=== PATIENT | male | born 2000 | race Caucasian/White ===

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

== ENCOUNTER 2024-08-06 18:57 | Observation (INO) | payer BC, SELFPAY ==
[2024-08-06 19:01] VITALS: BP 131/79; PULSE 94; RESP 16; TEMP 36.4; O2SAT 99
[2024-08-06 19:07] LABS: Glucose Point of Care > 500 mg/dl (65-105)
[2024-08-06] MEDS: SODIUM CHLORIDE 0.9% IV 700 ML 999 ML IV CONT (19:29)
[2024-08-06] MEDS: SODIUM CHLORIDE 0.9% IV 1,000 ML 999 ML IV CONT (19:29)
[2024-08-06 19:31] VITALS: BP 122/79; PULSE 100; RESP 16; TEMP 36.7; O2SAT 100
--- NOTE | 2024-08-06 19:33 | ED.RECABL ---
HPI - Recheck/Abnormal Lab/Rx General Chief Complaint: Recheck/Abnormal Lab/Rx Stated Complaint: High Blood Sugar Time Seen by Provider: 08/06/24 19:19 History of Present Illness HPI narrative: Patient is a 23-year-old male who presents to the ER with concerns of high blood sugar. He reports psychiatrist was going to change his psychiatric medication but wanted to check his blood work prior to making any changes. Patient reports his blood work was drawn yesterday and today his psychiatrist called him and told him he needed to go to the ER for evaluation. He endorses our last 3 months he has had increased urination, increased thirst, weight loss. Patient reports he has a history of depression and is on the autism spectrum. He reports he takes Strattera and Zoloft to treat his conditions. Patient and his parents also endorses patient has ?sensory issues involving food aversion. He denies any recent fevers, signs/symptoms of infection, chest pain, shortness of breath, back pain. Related Data Home Medications ?Medication ?Instructions ?Recorded ?Confirmed ?Last Taken ?Type atomoxetine 18 mg capsule 36 mg PO DAILY 12/19/22 01/05/23 Unknown History Allergies Allergy/AdvReac Type Severity Reaction Status Date / Time No Known Allergies Allergy Verified 01/05/23 09:55 Review of Systems Review of Systems: All systems reviewed & are unremarkable except as noted in HPI and below PMFSH Past Medical History Medical History (Updated 08/06/24 @ 21:56 by Ashley Archibald APRN) ADHD (attention deficit hyperactivity disorder) Depression Autism spectrum disorder Anxiety Surgical History Surgical History History of tonsillectomy and adenoidectomy 2006 Family History Family History Other Colon cancer Depression Pancreatic cancer Social History Social History Social History: Code status: Full code Surrogate decision maker: Parents Smoking status: Never smoker Second hand tobacco smoke exposure: No Alcohol intake: never Substance use: never Substance use type: does not use Lack of Transportation: No Lack of Food: Never True Current Housing: I Have Housing Concerned About Future Housing: No Difficulty Paying Gas/Electric Bills: No Difficulty Paying for Meds: No Currently Unemployed: No Education: High School Diploma/GED Difficulty w/ Childcare or Family Care: No Living arrangements: with family Occupation/Education: student Gender identity (if verbalized by the patient): Male Sexual Orientation (if Verbalized by the Patient): Straight or Heterosexual Spiritual care concerns: No Agree to blood products: Yes Exam Narrative: GENERAL: Well appearing, poorly-nourished, non-toxic, in no acute distress. HEAD: Normocephalic, atraumatic. NECK: Supple. No adenopathy, no masses. RESPIRATORY: Airway patent, respirations nonlabored. Clear to auscultation bilaterally, no rales, rhonchi, wheezing. CARDIOVASCULAR: Regular rate and rhythm without murmurs, rubs, or gallops. Peripheral pulses 2+ and equal bilaterally. ABDOMINAL: Soft, nontender, nondistended, no hepatosplenomegaly. Normoactive BS. MUSCULOSKELETAL: Moves all extremities. Strength/ROM intact without gross deformities. SKIN: Warm, dry, normal color. No rashes. NEURO: A&O X3. Speech clear. Cranial nerves II-XII grossly intact. Steady gait. No ataxic movements. PSYCHIATRIC: Appropriate mood and affect. Normal interaction. Course Vital Signs Vital signs: Vital Signs Temperature 36.4 C 08/06/24 19:01 Pulse Rate 94 08/06/24 19:01 Respiratory Rate 16 08/06/24 19:01 Blood Pressure 131/79 08/06/24 19:01 Pulse Oximetry 99 08/06/24 19:01 Temperature 36.7 C 08/06/24 19:31 Pulse Rate 100 08/06/24 19:31 Respiratory Rate 16 08/06/24 19:31 Blood Pressure 122/79 08/06/24 19:31 Pulse Oximetry 100 08/06/24 19:31 MDM - Recheck/Abnormal Lab/Rx MDM Narrative Medical decision making narrative: Patient is a 23-year-old male who presents to the ER with concerns of high blood sugar. He reports psychiatrist was going to change his psychiatric medication but wanted to check his blood work prior to making any changes. Patient reports his blood work was drawn yesterday and today his psychiatrist called him and told him he needed to go to the ER for evaluation. He endorses our last 3 months he has had increased urination, increased thirst, weight loss. Patient reports he has a history of depression and is on the autism spectrum. He reports he takes Strattera and Zoloft to treat his conditions. Patient and his parents also endorses patient has ?sensory issues involving food aversion. He denies any recent fevers, signs/symptoms of infection, chest pain, shortness of breath, back pain. Labs Ordered: CBC, CMP, VBG, phosphorus, UA, beta hydroxybutyrate, magnesium, TSH Results: Patient's CBC was unremarkable. His CMP indicates a sodium of 132, carbon dioxide 18, anion gap of 15, BUN of 8, creatinine is 0.34, glucose of 619, calcium of 7.7. His beta hydroxybutyrate was 4.40. Patient's TSH was within normal limits. His urinalysis indicated a glucose of 3+ and ketones of 3+. Imaging Ordered: None necessary Diagnosis: Hyperglycemia, new onset diabetes Patient Education/Shared MDM: Patient given a total of 3.6 L normal saline IV bolus. Repeat CMP indicates patient's glucose is decreasing slowly. Results shared with patient and family. Patient will be admitted to the hospital. He and his patient verbalized understanding and are in agreement with plan. They have many questions regarding this new diagnosis and are interested in lots of education prior to discharge. 0-Spoke with hospitalist who is in agreement to admit patient to hospital. Will give Lantus 10 units prior to admission and repeat his CMP. Differential Diagnosis Differential diagnosis: Likely other (Hyperglycemia, DKA, dehydration) Lab Data Attestation: I reviewed the patient's lab results. 08/06/24 19:23 08/06/24 19:23 Labs: Lab Results 08/06/24 08/06/24 08/06/24 Range/Units 19:02 19:21 19:23 WBC 5.0 (4.5-10.0) K/mm3 RBC 4.86 (4.6-6.20) M/mm3 Hgb 15.6 (14.0-18.0) g/dL Hct 42.3 (42.0-52.0) % MCV 87.0 (80-100) fl MCH 32.1 (26-34) pg MCHC 36.9 H (32-36) g/dl RDW 11.8 (11.5-14.5) % Plt Count 246 (150-375) k/mm3 MPV 10.6 H (7.4-10.4) fl Immature Gran % (Auto) 1.8 H (0-0.5) % Neut % (Auto) 54.9 (45.5-73.1) % Lymph % (Auto) 30.1 (18.3-44.2) % [place] % (Auto) 9.6 H (2.6-8.5) % Eos % (Auto) 2.4 (0-4.4) % Baso % (Auto) 1.2 (0.2-1.2) % Lymph # (Auto) 1.51 (0.9-3.2) K/mm3 [place] # (Auto) 0.5 (0.1-0.6) K/mm3 Eos # (Auto) 0.1 (0-0.3) K/mm3 Baso # (Auto) 0.1 (0.0-0.1) K/mm3 Abs Immat Gran (auto) 0.09 H (0.00-0.031) K/mm3 Absolute Neuts (auto) 2.8 (1.3-6.7) K/mm3 Absolute Nucleated RBC 0.000 (0.0-0.012) K/mm3 Nucleated RBC % 0.0 (0.0-0.2) % Sodium 128 L (137-145) mmol/L Potassium 3.9 (3.4-5.0) mmol/L Chloride 90 L (98-107) mmol/L Carbon Dioxide 20 L (22-30) mmol/L Anion Gap 18 H (4-12) mmol/L BUN 10 (9-20) mg/dL Creatinine 0.39 L (0.7-1.3) mg/dL Estim Creat Clear Calc 188 ml/min Estimated GFR > 60 (59 - ) Glucose 619 H* (65-110) mg/dL POC Capillary Glucose > 500 H* (65-105) mg/dl Calcium 9.2 (8.4-10.2) mg/dL Phosphorus 4.4 (2.5-4.5) mg/dL Magnesium 1.9 (1.6-2.3) mg/dL Total Bilirubin 0.9 (0.2-1.3) mg/dL AST 20 (17-59) U/L ALT 21 (6-50) U/L Alkaline Phosphatase 118 (38-126) U/L Total Protein 7.0 (6.3-8.2) g/dL Albumin 4.4 (3.5-5.1) g/dL Beta-Hydroxybutyrate/Acetoacetate 4.40 H (0.02-0.27) mmol/L TSH (Reflex) 1.280 (0.465-4.68) uIU/mL Urine Color (Yellow) Urine Appearance (Clear) Urine pH (5.0-9.0) Ur Specific [place] (1.001-1.035) Urine Protein (Negative) mg/dL Urine Glucose (UA) (Negative) mg/dL Urine Ketones (Negative) mg/dL Ur Blood (Man) (Negative) Urine Nitrate (Negative) Urine Bilirubin (Negative) Urine Urobilinogen (<2.0) mg/dL Leukocyte Esterase Rfl (Negative) AMBER/UL 08/06/24 08/06/24 08/06/24 Range/Units 20:08 20:37 21:12 WBC (4.5-10.0) K/mm3 RBC (4.6-6.20) M/mm3 Hgb (14.0-18.0) g/dL Hct (42.0-52.0) % MCV (80-100) fl MCH (26-34) pg MCHC (32-36) g/dl RDW (11.5-14.5) % Plt Count (150-375) k/mm3 MPV (7.4-10.4) fl Immature Gran % (Auto) (0-0.5) % Neut % (Auto) (45.5-73.1) % Lymph % (Auto) (18.3-44.2) % [place] % (Auto) (2.6-8.5) % Eos % (Auto) (0-4.4) % Baso % (Auto) (0.2-1.2) % Lymph # (Auto) (0.9-3.2) K/mm3 [place] # (Auto) (0.1-0.6) K/mm3 Eos # (Auto) (0-0.3) K/mm3 Baso # (Auto) (0.0-0.1) K/mm3 Abs Immat Gran (auto) (0.00-0.031) K/mm3 Absolute Neuts (auto) (1.3-6.7) K/mm3 Absolute Nucleated RBC (0.0-0.012) K/mm3 Nucleated RBC % (0.0-0.2) % Sodium Pending (137-145) mmol/L Potassium Pending (3.4-5.0) mmol/L Chloride Pending (98-107) mmol/L Carbon Dioxide Pending (22-30) mmol/L Anion Gap Pending (4-12) mmol/L BUN Pending (9-20) mg/dL Creatinine Pending (0.7-1.3) mg/dL Estim Creat Clear Calc Pending ml/min Estimated GFR Pending (59 - ) Glucose Pending (65-110) mg/dL POC Capillary Glucose 400 H (65-105) mg/dl Calcium Pending (8.4-10.2) mg/dL Phosphorus (2.5-4.5) mg/dL Magnesium (1.6-2.3) mg/dL Total Bilirubin Pending (0.2-1.3) mg/dL AST Pending (17-59) U/L ALT Pending (6-50) U/L Alkaline Phosphatase Pending (38-126) U/L Total Protein Pending (6.3-8.2) g/dL Albumin Pending (3.5-5.1) g/dL Beta-Hydroxybutyrate/Acetoacetate (0.02-0.27) mmol/L TSH (Reflex) (0.465-4.68) uIU/mL Urine Color Yellow (Yellow) Urine Appearance Clear (Clear) Urine pH 5.5 (5.0-9.0) Ur Specific [place] 1.032 (1.001-1.035) Urine Protein Negative (Negative) mg/dL Urine Glucose (UA) 3+ H (Negative) mg/dL Urine Ketones 3+ H (Negative) mg/dL Ur Blood (Man) Negative (Negative) Urine Nitrate Negative (Negative) Urine Bilirubin Negative (Negative) Urine Urobilinogen 0.2 (<2.0) mg/dL Leukocyte Esterase Rfl Negative (Negative) AMBER/UL ABG Data ABG results: 08/06/24 19:40 O2 Liters/Min Not Reportable Discharge Plan Discharge Clinical Impression: Diabetes mellitus, new onset, Dehydration Patient Disposition: Still a Patient Condition: Stable Instructions: Antibiotic Form Patient Language: Turkmen Prescriptions: No Action atomoxetine 18 mg capsule 36 mg PO DAILY sertraline 100 mg tablet 100 mg PO DAILY Qty: 30 4RF Follow-up/Referrals: Cortney Galan MD [Primary Care Provider] -
[2024-08-06 19:36] LABS: Basophils Absolute Auto 0.1 K/mm3 (0.0-0.1); Basophils Percent Auto 1.2 % (0.2-1.2); Eosinophils Absolute Auto 0.1 K/mm3 (0-0.3); Eosinophils Percent Auto 2.4 % (0-4.4); Hematocrit 42.3 % (42.0-52.0); Hemoglobin 15.6 g/dL (14.0-18.0); Immature Granulocyte Absolute 0.09 K/mm3 (0.00-0.031); Immature Granulocyte Percent A 1.8 % (0-0.5); Lymphocytes Absolute Auto 1.51 K/mm3 (0.9-3.2); Lymphocytes Percent Auto 30.1 % (18.3-44.2); Mean Corpuscular HGB Conc 36.9 g/dl (32-36); Mean Corpuscular Hemoglobin 32.1 pg (26-34); Mean Platelet Volume 10.6 fl (7.4-10.4); Monocytes Absolute Auto 0.5 K/mm3 (0.1-0.6); Monocytes Percent Auto 9.6 % (2.6-8.5); Neutrophils Absolute Auto 2.8 K/mm3 (1.3-6.7); Neutrophils Percent Auto 54.9 % (45.5-73.1); Platelet Count Result 246 k/mm3 (150-375); Red Blood Count 4.86 M/mm3 (4.6-6.20); Red Cell Distribution Width 11.8 % (11.5-14.5)
[2024-08-06 19:44] LABS: Fractional Inspired Oxygen 21 %; HCO3 VBG 17.4 mEq/l (24.0-30.0); PCO2 VBG 32.7 mmHg (42.0-48.0); pH VBG 7.345 (7.300-7.400)
[2024-08-06 19:45] LABS: Device ROOM AIR; PO2 VBG < 27.0 mmHg (35.0-45.0)
[2024-08-06 20:07] LABS: Alanine Aminotransferase 21 U/L (6-50); Albumin Level 4.4 g/dL (3.5-5.1); Alkaline Phosphatase 118 U/L (38-126); Anion Gap 18 mmol/L (4-12); Aspartate Amino Transferase 20 U/L (17-59); Bilirubin,Total 0.9 mg/dL (0.2-1.3); Blood Urea Nitrogen 10 mg/dL (9-20); Calcium 9.2 mg/dL (8.4-10.2); Carbon Dioxide 20 mmol/L (22-30); Chloride 90 mmol/L (98-107); Estimated CRCL calculation 188 ml/min; Estimated Glomerular Filt Rate > 60; Glucose 619 mg/dL (65-110); Magnesium 1.9 mg/dL (1.6-2.3); Phosphorus 4.4 mg/dL (2.5-4.5); Potassium 3.9 mmol/L (3.4-5.0); Sodium 128 mmol/L (137-145)
[2024-08-06 20:14] LABS: Add Urine Microscopic? NO; Appearance Urine Clear (Clear); Bilirubin Urine Negative (Negative); Blood Urine Negative (Negative); Color Urine Yellow (Yellow); Glucose Urine UA 3+ mg/dL (Negative); Ketones Urine 3+ mg/dL (Negative); Leukocyte Esterase Ur Negative LEU/UL (Negative); Nitrate Urine Negative (Negative); Protein Urine Negative (Negative); Specific Grav Ur 1.032 (1.001-1.035); Urobilinogen Urine 0.2 mg/dL (<2.0); pH Urine 5.5 (5.0-9.0)
[2024-08-06 20:40] LABS: Glucose Point of Care 400 mg/dl (65-105)
[2024-08-06 21:07] VITALS: BP 117/70; PULSE 77; RESP 16; TEMP 36.7; O2SAT 100
--- NOTE | 2024-08-06 21:27 | P.HP_ITS ---
H&P: HPI History of Present Illness Date/Time: 08/06/24 21:27 Chief Complaint: High blood sugar Narrative: 23-year-old male with past medical history of depression and autism spectrum disorder with sensory issues and food aversion issues presented to the ER from home after outpatient labs demonstrated high glucoses. The patient's psychiatrist at ordered lab work prior to changing the patient's psychiatric medications. Outpatient labs demonstrated glucose of 694. The patient was directed to come to the ER for evaluation. The patient and his mother reports that his weight was as high as 155 lb last year. His waist circumference used to be around 30. His waist circumference is now around 23 in. His mother reports that patient is had marked weight loss over the last 3-4 months. Patient is mother disagree with some of the timing of symptoms. But the patient confirms that he has been having polydipsia, polyphagia and polyuria at least for the last 3 months. He has been resistant on coming in for evaluation. Denies any dysuria, hematuria, nausea, vomiting, abdominal pain, fevers or chills. The patient reported that during his last evaluation is psychiatrist office his Strattera was increased from 18 mg to 25. His sertraline was increased from 100 mg up to 150 mg. His mother reports that the patient is still ?down and low? in mood. Patient denies any active suicidal or homicidal ideation. His stay electrolyte panel in the ER demonstrated pseudo hyponatremia sodium of 128 mildly low serum bicarb at 20 anion gap of 18 creatinine 0.3 and glucose of 619. The patient received a total of 3 L of IV fluids (approximately 50 mL/kilos) and repeat glucose was down to 400. On arrival to the medical floor patient's glucose was down to 332. Review of Systems 2 Review of Systems: 12 systems were reviewed with pertinent positives and negatives per HPI. Except as documented in the HPI, all other systems were reviewed and are negative. [facility] Past Medical History Medical History ADHD (attention deficit hyperactivity disorder) Depression Autism spectrum disorder Anxiety Surgical History Surgical History History of tonsillectomy and adenoidectomy 2006 Family History Family History Mother Pre-diabetes Other Colon cancer Depression Pancreatic cancer Social History Social History (Updated 08/07/24 @ 01:21 by Ayanna Serna DO) Social History: The patient lives at home with his mother father and older brother. He is currently studying psychology at [email or web address]. He is a lifelong nonsmoker does not use illicit substances. He does drink alcohol on occasion in moderation. Code status: Full code Surrogate decision maker: Parents Smoking status: Never smoker Second hand tobacco smoke exposure: No Alcohol intake: current Drinks per week: 2 Substance use: never Substance use type: does not use Do You Feel Safe in your Home?: Yes Lack of Transportation: No Lack of Food: Never True Current Housing: I Have Housing Concerned About Future Housing: No Difficulty Paying Gas/Electric Bills: No Difficulty Paying for Meds: No Currently Unemployed: No Education: Associate Degree Difficulty w/ Childcare or Family Care: No Living arrangements: with family Occupation/Education: student Gender identity (if verbalized by the patient): Male Sexual Orientation (if Verbalized by the Patient): Straight or Heterosexual Spiritual care concerns: No Agree to blood products: Yes Meds Home Medications and Allergies Home Medications ?Medication ?Instructions ?Recorded ?Confirmed ?Type atomoxetine 25 mg capsule 25 mg PO HS 08/06/24 08/06/24 History sertraline 100 mg tablet 150 mg PO HS 08/06/24 08/06/24 History Allergies Allergy/AdvReac Type Severity Reaction Status Date / Time No Known Allergies Allergy Verified 01/05/23 09:55 Vital Signs Vital Signs - 24 hr 08/06/24 19:01 08/06/24 19:31 Temperature 97.6 F 98.1 F Pulse Rate 94 100 Respiratory Rate 16 16 Blood Pressure 131/79 122/79 Pulse Oximetry 99 100 Exam 2 Narrative: Weight 55 kg BMI 17.9 Const: Other: Thin body habitus, no acute distress, appears stated age HENMT: Other: Head is normocephalic atraumatic, mucous membranes are tacky, no oral pharyngeal erythema Eyes: Other: Pupils are equal and reactive, no scleral icterus, no conjunctival pallor Neck: Other: No JVD, no lymphadenopathy, trachea midline Resp: Other: Clear to auscultation bilaterally, no increased work of breathing Cardio: Other: Regular rate, regular rhythm, 2+ bilateral radial pedal pulses GI: Other: Concave, soft, no organomegaly, normoactive bowel sounds Skin: Other: Generalized pallor, non jaundice Neuro: Other: Alert oriented, speech is clear, no facial asymmetry, no localizing neurologic deficits noted during the course of conversation Extrem: Other: No clubbing, cyanosis or edema Psych: Other: Flat affect, pleasant, cooperative, appropriate judgment and insight H&P: Results Labs Labs: Laboratory Tests 08/06/24 19:23 CMP: Sodium 128 potassium 3.9 chloride 90 CO2 20 anion gap 18 BUN 10 creatinine 0.39 glucose 619 calcium 9.2 magnesium 1.9 AST ALT and alk phos within normal limits albumin 4.4 total protein of 7 08/06/24 08/06/24 08/06/24 19:02 19:20 19:21 WBC RBC Hgb Hct MCV MCH MCHC RDW Plt Count MPV Immature Gran % (Auto) Neut % (Auto) Lymph % (Auto) [place] % (Auto) Eos % (Auto) Baso % (Auto) Lymph # (Auto) [place] # (Auto) Eos # (Auto) Baso # (Auto) Abs Immat Gran (auto) Absolute Neuts (auto) Absolute Nucleated RBC Nucleated RBC % VBG pH VBG pCO2 VBG pO2 VBG HCO3 O2 Delivery Device O2 Liters/Min Sodium Potassium Chloride Carbon Dioxide Anion Gap BUN Creatinine Estim Creat Clear Calc Estimated GFR Glucose POC Capillary Glucose > 500 H* Hemoglobin A1c Pending Calcium Phosphorus Magnesium Total Bilirubin AST ALT Alkaline Phosphatase Total Protein Albumin Beta-Hydroxybutyrate/Acetoacetate TSH (Reflex) 1.280 Urine Color Urine Appearance Urine pH Ur Specific [place] Urine Protein Urine Glucose (UA) Urine Ketones Ur Blood (Man) Urine Nitrate Urine Bilirubin Urine Urobilinogen Leukocyte Esterase Rfl 08/06/24 08/06/24 08/06/24 19:23 19:40 20:08 WBC 5.0 RBC 4.86 Hgb 15.6 Hct 42.3 MCV 87.0 MCH 32.1 MCHC 36.9 H RDW 11.8 Plt Count 246 MPV 10.6 H Immature Gran % (Auto) 1.8 H Neut % (Auto) 54.9 Lymph % (Auto) 30.1 [place] % (Auto) 9.6 H Eos % (Auto) 2.4 Baso % (Auto) 1.2 Lymph # (Auto) 1.51 [place] # (Auto) 0.5 Eos # (Auto) 0.1 Baso # (Auto) 0.1 Abs Immat Gran (auto) 0.09 H Absolute Neuts (auto) 2.8 Absolute Nucleated RBC 0.000 Nucleated RBC % 0.0 VBG pH Pending VBG pCO2 Pending VBG pO2 Pending VBG HCO3 Pending O2 Delivery Device Pending O2 Liters/Min Not Reportable Sodium 128 L Potassium 3.9 Chloride 90 L Carbon Dioxide 20 L Anion Gap 18 H BUN 10 Creatinine 0.39 L Estim Creat Clear Calc 188 Estimated GFR > 60 Glucose 619 H* POC Capillary Glucose Hemoglobin A1c Calcium 9.2 Phosphorus 4.4 Magnesium 1.9 Total Bilirubin 0.9 AST 20 ALT 21 Alkaline Phosphatase 118 Total Protein 7.0 Albumin 4.4 Beta-Hydroxybutyrate/Acetoacetate 4.40 H TSH (Reflex) Urine Color Yellow Urine Appearance Clear Urine pH 5.5 Ur Specific [place] 1.032 Urine Protein Negative Urine Glucose (UA) 3+ H Urine Ketones 3+ H Ur Blood (Man) Negative Urine Nitrate Negative Urine Bilirubin Negative Urine Urobilinogen 0.2 Leukocyte Esterase Rfl Negative 08/06/24 08/06/24 20:37 21:12 WBC RBC Hgb Hct MCV MCH MCHC RDW Plt Count MPV Immature Gran % (Auto) Neut % (Auto) Lymph % (Auto) [place] % (Auto) Eos % (Auto) Baso % (Auto) Lymph # (Auto) [place] # (Auto) Eos # (Auto) Baso # (Auto) Abs Immat Gran (auto) Absolute Neuts (auto) Absolute Nucleated RBC Nucleated RBC % VBG pH VBG pCO2 VBG pO2 VBG HCO3 O2 Delivery Device O2 Liters/Min Sodium Pending Potassium Pending Chloride Pending Carbon Dioxide Pending Anion Gap Pending BUN Pending Creatinine Pending Estim Creat Clear Calc Pending Estimated GFR Pending Glucose Pending POC Capillary Glucose 400 H Hemoglobin A1c Calcium Pending Phosphorus Magnesium Total Bilirubin Pending AST Pending ALT Pending Alkaline Phosphatase Pending Total Protein Pending Albumin Pending Beta-Hydroxybutyrate/Acetoacetate TSH (Reflex) Urine Color Urine Appearance Urine pH Ur Specific [place] Urine Protein Urine Glucose (UA) Urine Ketones Ur Blood (Man) Urine Nitrate Urine Bilirubin Urine Urobilinogen Leukocyte Esterase Rfl VBG is not resulted within the computer system but VBG was obtained and resulted. PH of 7.345 in pCO2 is mildly low at 32.7 Assessment and Plan Assessment and plan (1) New onset type 1 diabetes mellitus, uncontrolled: Status: Acute (2) Protein-calorie malnutrition, moderate: Code(s): E44.0 - Moderate protein-calorie malnutrition Status: Acute (3) Dehydration: Code(s): E86.0 - Dehydration Status: Acute (4) Pseudohyponatremia: Code(s): R79.89 - Other specified abnormal findings of blood chemistry Status: Acute Plan Patient has new onset type 1 diabetes mellitus with borderline DKA versus combination of DKA and or starvation ketosis. Patient has already had significant improvement in glucoses with isotonic fluid resuscitation approximately 50 mL/kilos. Repeat electrolyte panel did demonstrate significant improvement in anion gap with slightly lower serum bicarb. But patient had significant improvement in pseudo hyponatremia with improvement in glucose is down to 385. VBG results are still pending but patient clinically appears stable and improved with fluids. Will admit patient to medical floor. I requested the patient receive dose of Lantus 10 units subQ x1 this would be 0.2 units per kg dose given the patient is insulin naive state. Will also place patient on low-dose sliding scale insulin and mealtime bolus insulin as well as Accu-Cheks a.c. HS and hypoglycemia protocol. Will consult nurse educator is the patient family will need significant Education given this new diagnosis. Patient has pseudo hyponatremia due to degree of hyperglycemia with sodium has improved proportionately with correction of glucose. Will repeat electrolyte panel in a.m.. The patient is adamant that he only wants to use glucometer with intermittent Accu-Cheks and basal bolus insulin with long-acting insulin and short-acting insulin as needed with meals. His mother is adamant that he received an insulin pump. I did discuss in great detail with both patient and his mother at bedside that the decision on insulin pump would not be made during an inpatient hospital stay. That he would need to follow-up with Endocrinology as outpatient to have further discussion of this. The patient has had at least and 18 kg weight loss since last year. It sounds as if he has had more acute weight loss recently but the exact amount is unknown. Patient does have extremely thin body habitus with BMI of 17 with evidence of muscle wasting. He at least has moderate if not severe protein calorie malnutrition. This is at least in part due to untreated/previously unknown diagnosis of diabetes causing some muscle wasting and subcutaneous fat loss. Patient would benefit from outpatient dietitian consultation Education regarding appropriate nutrition/dietary choices. The patient does report persistent depressive symptoms but denies any acute worsening of depression symptoms. He already has close follow-up with his psychiatrist as outpatient and recently had medication changes. Will continue home sertraline. Will hold the patient's Strattera while acutely hospitalized. Patient's mother request psychiatric consultation while inpatient. I explained to her that that was not a feasible option as our facility does not have a inpatient psychiatric service. In his patient is not actively acutely decompensated from his depression he can follow-up with his outpatient provider. The patient's case/plan of care was discussed with the patient his mother at bedside with the patient's permission. All questions were answered and concerns addressed. Patient has been admitted as observation status. Quality If No VTE Prophylaxis Answer both mechanical and pharmacologic: Reason no mechanical VTE proph: low risk/not indicated Reason no pharmacologic proph: low risk/not indicated Hospitalist MIPS Advance Care Plan I have confirmed that the patient's Advanced Care Plan is present, code status is documented, or surrogate decision maker is listed in patient medical record.: Yes Medication Reconciliation I have utilized all available resources to obtain, update and review the patients current medications (includes all prescriptions, OTC, herbals, cannabis, and nutritional supplements).: Yes
[2024-08-06 21:40] LABS: Alanine Aminotransferase 21 U/L (6-50); Albumin Level 3.8 g/dL (3.5-5.1); Alkaline Phosphatase 83 U/L (38-126); Anion Gap 15 mmol/L (4-12); Aspartate Amino Transferase 26 U/L (17-59); Bilirubin,Total 0.8 mg/dL (0.2-1.3); Blood Urea Nitrogen 8 mg/dL (9-20); Calcium 7.7 mg/dL (8.4-10.2); Carbon Dioxide 18 mmol/L (22-30); Chloride 99 mmol/L (98-107); Estimated CRCL calculation 212 ml/min; Estimated Glomerular Filt Rate > 60; Glucose 385 mg/dL (65-110); Potassium 3.6 mmol/L (3.4-5.0); Sodium 132 mmol/L (137-145)
[2024-08-06] MEDS: INSULIN GLARGINE (*BKC) 100 UNITS/ML 10 UNITS SUB-Q (21:46)
[2024-08-06 21:48] LABS: Hemoglobin A1C > 14.0 % (<5.7)
[2024-08-06] MEDS: SODIUM CHLORIDE 0.9% IV 1,000 ML 125 ML IV CONT (22:16)
[2024-08-06 22:53] LABS: Glucose Point of Care 332 mg/dl (65-105)
[2024-08-06 23:00] VITALS: BP 106/73; PULSE 95; RESP 16; TEMP 36.6; O2SAT 100
[2024-08-06 23:48] VITALS: BMI 17.1
[2024-08-07] MEDS: INSULIN ASPART (*BKC) 100 UNITS/ML SUB-Q ×6 (00:21→20:36)
[2024-08-07 03:30] VITALS: BP 101/64; PULSE 99; RESP 14; TEMP 36.5; O2SAT 97
[2024-08-07 03:41] LABS: Glucose Point of Care 117 mg/dl (65-105)
[2024-08-07 05:24] LABS: Anion Gap 9 mmol/L (4-12); Blood Urea Nitrogen 5 mg/dL (9-20); Calcium 8.2 mg/dL (8.4-10.2); Carbon Dioxide 25 mmol/L (22-30); Chloride 103 mmol/L (98-107); Estimated CRCL calculation 184 ml/min; Estimated Glomerular Filt Rate > 60; Glucose 106 mg/dL (65-110); Potassium 2.9 mmol/L (3.4-5.0); Sodium 137 mmol/L (137-145)
[2024-08-07] MEDS: SODIUM CHLORIDE 0.9% IV 1,000 ML 125 ML IV CONT ×3 (06:09→20:34)
[2024-08-07 08:00] VITALS: PULSE 99; RESP 14; O2SAT 97
[2024-08-07 08:23] LABS: Glucose Point of Care 113 mg/dl (65-105)
[2024-08-07 12:21] LABS: Glucose Point of Care 207 mg/dl (65-105)
[2024-08-07] MEDS: ACETAMINOPHEN 325 MG TABLET 650 MG PO (12:31)
[2024-08-07 14:00] VITALS: BP 113/71; PULSE 93; RESP 20; O2SAT 98
--- NOTE | 2024-08-07 15:02 | PM.IMPN ---
Progress Note: A&P Assessment and Plan (1) New onset type 1 diabetes mellitus, uncontrolled: Status: Acute (2) Protein-calorie malnutrition, moderate: Code(s): E44.0 - Moderate protein-calorie malnutrition Status: Acute (3) Dehydration: Code(s): E86.0 - Dehydration Status: Acute (4) Pseudohyponatremia: Code(s): R79.89 - Other specified abnormal findings of blood chemistry Status: Acute Plan Patient has new onset type 1 diabetes mellitus with borderline DKA versus combination of DKA and or starvation ketosis. Patient has already had significant improvement in glucoses with isotonic fluid resuscitation approximately 50 mL/kilos. Repeat electrolyte panel did demonstrate significant improvement in anion gap with slightly lower serum bicarb. But patient had significant improvement in pseudo hyponatremia with improvement in glucose is down to 385. VBG results are still pending but patient clinically appears stable and improved with fluids. Will admit patient to medical floor. I requested the patient receive dose of Lantus 10 units subQ x1 this would be 0.2 units per kg dose given the patient is insulin naive state. Will also place patient on low-dose sliding scale insulin and mealtime bolus insulin as well as Accu-Cheks a.c. HS and hypoglycemia protocol. Will consult pet training instructor is the patient family will need significant Education given this new diagnosis. Patient has pseudo hyponatremia due to degree of hyperglycemia with sodium has improved proportionately with correction of glucose. Will repeat electrolyte panel in a.m.. The patient is adamant that he only wants to use glucometer with intermittent Accu-Cheks and basal bolus insulin with long-acting insulin and short-acting insulin as needed with meals. His mother is adamant that he received an insulin pump. I did discuss in great detail with both patient and his mother at bedside that the decision on insulin pump would not be made during an inpatient hospital stay. That he would need to follow-up with Endocrinology as outpatient to have further discussion of this. The patient has had at least and 18 kg weight loss since last year. It sounds as if he has had more acute weight loss recently but the exact amount is unknown. Patient does have extremely thin body habitus with BMI of 17 with evidence of muscle wasting. He at least has moderate if not severe protein calorie malnutrition. This is at least in part due to untreated/previously unknown diagnosis of diabetes causing some muscle wasting and subcutaneous fat loss. Patient would benefit from outpatient dietitian consultation Education regarding appropriate nutrition/dietary choices. The patient does report persistent depressive symptoms but denies any acute worsening of depression symptoms. He already has close follow-up with his psychiatrist as outpatient and recently had medication changes. Will continue home sertraline. Will hold the patient's Strattera while acutely hospitalized. Patient's mother request psychiatric consultation while inpatient. I explained to her that that was not a feasible option as our facility does not have a inpatient psychiatric service. In his patient is not actively acutely decompensated from his depression he can follow-up with his outpatient provider. The patient's case/plan of care was discussed with the patient his mother at bedside with the patient's permission. All questions were answered and concerns addressed. Patient has been admitted as observation status. Patient with new onset diabetes etiology uncertain type 1 or type 2, suspect most likely type 1 and early stage to further evaluate C-peptide is ordered, patient started on insulin regimen and we will consult fruit or nut farm worker for further recommendation, patient's family is quite interested in starting the patient on insulin pump discussed with patient and his family, patient will follow-up with his dry wall plasterer and further recommendation to follow, patient was found to have hyponatremia most likely secondary to hyperglycemia which is now trending up his as blood sugars are improving. Patient is clinically stable will continue to monitor and further recommendation to follow. Subjective Date/time seen: 08/07/24 15:02 Interval history: High blood sugar H&P-Narrative: 23-year-old male with past medical history of depression and autism spectrum disorder with sensory issues and food aversion issues presented to the ER from home after outpatient labs demonstrated high glucoses. The patient's psychiatrist at ordered lab work prior to changing the patient's psychiatric medications. Outpatient labs demonstrated glucose of 694. The patient was directed to come to the ER for evaluation. The patient and his mother reports that his weight was as high as 155 lb last year. His waist circumference used to be around 30. His waist circumference is now around 23 in. His mother reports that patient is had marked weight loss over the last 3-4 months. Patient is mother disagree with some of the timing of symptoms. But the patient confirms that he has been having polydipsia, polyphagia and polyuria at least for the last 3 months. He has been resistant on coming in for evaluation. Denies any dysuria, hematuria, nausea, vomiting, abdominal pain, fevers or chills. The patient reported that during his last evaluation is psychiatrist office his Strattera was increased from 18 mg to 25. His sertraline was increased from 100 mg up to 150 mg. His mother reports that the patient is still ?down and low? in mood. Patient denies any active suicidal or homicidal ideation. His stay electrolyte panel in the ER demonstrated pseudo hyponatremia sodium of 128 mildly low serum bicarb at 20 anion gap of 18 creatinine 0.3 and glucose of 619. The patient received a total of 3 L of IV fluids (approximately 50 mL/kilos) and repeat glucose was down to 400. On arrival to the medical floor patient's glucose was down to 332. Patient with new onset diabetes etiology uncertain type 1 or type 2, suspect most likely type 1 and early stage to further evaluate C-peptide is ordered, patient started on insulin regimen and we will consult fruit or nut farm worker for further recommendation, patient's family is quite interested in starting the patient on insulin pump discussed with patient and his family, patient will follow-up with his dry wall plasterer and further recommendation to follow, patient was found to have hyponatremia most likely secondary to hyperglycemia which is now trending up his as blood sugars are improving. Patient is clinically stable will continue to monitor and further recommendation to follow. Review of Systems Review of Systems: 12 systems were reviewed with pertinent positives and negatives per HPI. Except as documented in the HPI, all other systems were reviewed and are negative. Exam Narrative: Patient is comfortable, NAD appears malnourished HEENT: eyes are clear and none icteric LUNGS:CTA HEART: RR S1S2 ABD: BS+, Soft and nontender Lower extremities: no edema SKIN: nonjaundiced Neuro: grossly intact. Objective Data Vital Signs Vital Signs: Vital Signs - 24 hr 08/06/24 19:01 08/06/24 19:31 08/06/24 21:07 Temperature 36.4 C 36.7 C 36.7 C Pulse Rate 94 100 77 Respiratory Rate 16 16 16 Blood Pressure 131/79 122/79 117/70 Pulse Oximetry 99 100 100 Oxygen Delivery 08/06/24 23:00 08/07/24 01:34 08/07/24 03:30 Temperature 36.6 C 36.5 C Pulse Rate 95 99 Respiratory Rate 16 14 Blood Pressure 106/73 101/64 Pulse Oximetry 100 97 Oxygen Delivery Room Air 08/07/24 08:00 Temperature Pulse Rate 99 Respiratory Rate 14 Blood Pressure Pulse Oximetry 97 Oxygen Delivery Room Air Intake/Output Intake/Output: Intake & Output 08/04/24 08/05/24 08/06/24 08/07/24 23:59 23:59 23:59 23:59 Intake Total 1700 2577.9 Balance 1700 2577.9 Meds/Results Medications: Active Medications Generic Name Dose Route Start Last Admin Trade Name Freq PRN Reason Stop Dose Admin Acetaminophen 650 mg 08/07/24 11:50 08/07/24 12:31 Acetaminophen 325 Mg Tablet PO 650 mg Q6H PRN Administration Mild Pain (1-3) or Fever Dextrose 12.5 gm 08/06/24 21:47 Dextrose 50% 25 Gm/50 Ml Syringe IV PUSH PRN PRN Hypoglycemia Protocol Glucagon 1 mg 08/06/24 21:47 Glucagon For Inj 1 Mg Vial IM PRN PRN Hypoglycemia Protocol Glucose 15 gm 08/06/24 21:47 Glucose Oral Gel 15 Gm Of Glucse In 37.5 Gm Tube PO PRN PRN Hypoglycemia Protocol Dextrose 1,000 mls @ 100 mls/hr 08/06/24 21:47 Dextrose 5% 1,000 Ml IVPB PRN PRN Hypoglycemia Protocol Sodium Chloride 1,000 mls @ 125 mls/hr 08/06/24 22:00 08/07/24 12:39 Normal Saline Iv IV CONT 125 mls/hr .Q8H GABRIELLE Administration Insulin Aspart 2 units 08/07/24 08:00 08/07/24 12:32 Insulin Aspart (*Bkc) 100 Units/Ml SUB-Q 2 units TIDWM GABRIELLE Administration Insulin Aspart 2 - 5 units 08/07/24 08:00 08/07/24 12:32 Insulin Aspart (*Bkc) 100 Units/Ml SUB-Q 2 units TIDWM GABRIELLE Administration Protocol Insulin Aspart 1 - 2 units 08/07/24 21:00 Insulin Aspart (*Bkc) 100 Units/Ml SUB-Q HS [facility] Protocol Insulin Glargine 8 units 08/07/24 21:00 Insulin Glargine (*Bkc) 100 Units/Ml 0.15 units/kg (8 units) SUB-Q HS [facility] Sertraline HCl 150 mg 08/07/24 21:00 Sertraline Hcl 50 Mg Tablet PO HS [facility] Labs Labs: Laboratory Results - last 24 hr 08/06/24 08/06/24 08/06/24 19:02 19:20 19:21 WBC RBC Hgb Hct MCV MCH MCHC RDW Plt Count MPV Immature Gran % (Auto) Neut % (Auto) Lymph % (Auto) [place] % (Auto) Eos % (Auto) Baso % (Auto) Lymph # (Auto) [place] # (Auto) Eos # (Auto) Baso # (Auto) Abs Immat Gran (auto) Absolute Neuts (auto) Absolute Nucleated RBC Nucleated RBC % O2 Liters/Min Sodium Potassium Chloride Carbon Dioxide Anion Gap BUN Creatinine Estim Creat Clear Calc Estimated GFR Glucose POC Capillary Glucose > 500 H* Hemoglobin A1c > 14.0 H Calcium Phosphorus Magnesium Total Bilirubin AST ALT Alkaline Phosphatase Total Protein Albumin Beta-Hydroxybutyrate/Acetoacetate TSH (Reflex) 1.280 Urine Color Urine Appearance Urine pH Ur Specific [place] Urine Protein Urine Glucose (UA) Urine Ketones Ur Blood (Man) Urine Nitrate Urine Bilirubin Urine Urobilinogen Leukocyte Esterase Rfl 08/06/24 08/06/24 08/06/24 19:23 19:40 20:08 WBC 5.0 RBC 4.86 Hgb 15.6 Hct 42.3 MCV 87.0 MCH 32.1 MCHC 36.9 H RDW 11.8 Plt Count 246 MPV 10.6 H Immature Gran % (Auto) 1.8 H Neut % (Auto) 54.9 Lymph % (Auto) 30.1 [place] % (Auto) 9.6 H Eos % (Auto) 2.4 Baso % (Auto) 1.2 Lymph # (Auto) 1.51 [place] # (Auto) 0.5 Eos # (Auto) 0.1 Baso # (Auto) 0.1 Abs Immat Gran (auto) 0.09 H Absolute Neuts (auto) 2.8 Absolute Nucleated RBC 0.000 Nucleated RBC % 0.0 O2 Liters/Min Not Reportable Sodium 128 L Potassium 3.9 Chloride 90 L Carbon Dioxide 20 L Anion Gap 18 H BUN 10 Creatinine 0.39 L Estim Creat Clear Calc 188 Estimated GFR > 60 Glucose 619 H* POC Capillary Glucose Hemoglobin A1c Calcium 9.2 Phosphorus 4.4 Magnesium 1.9 Total Bilirubin 0.9 AST 20 ALT 21 Alkaline Phosphatase 118 Total Protein 7.0 Albumin 4.4 Beta-Hydroxybutyrate/Acetoacetate 4.40 H TSH (Reflex) Urine Color Yellow Urine Appearance Clear Urine pH 5.5 Ur Specific [place] 1.032 Urine Protein Negative Urine Glucose (UA) 3+ H Urine Ketones 3+ H Ur Blood (Man) Negative Urine Nitrate Negative Urine Bilirubin Negative Urine Urobilinogen 0.2 Leukocyte Esterase Rfl Negative 08/06/24 08/06/24 08/06/24 20:37 21:12 22:48 WBC RBC Hgb Hct MCV MCH MCHC RDW Plt Count MPV Immature Gran % (Auto) Neut % (Auto) Lymph % (Auto) [place] % (Auto) Eos % (Auto) Baso % (Auto) Lymph # (Auto) [place] # (Auto) Eos # (Auto) Baso # (Auto) Abs Immat Gran (auto) Absolute Neuts (auto) Absolute Nucleated RBC Nucleated RBC % O2 Liters/Min Sodium 132 L Potassium 3.6 Chloride 99 Carbon Dioxide 18 L Anion Gap 15 H BUN 8 L Creatinine 0.34 L Estim Creat Clear Calc 212 Estimated GFR > 60 Glucose 385 H POC Capillary Glucose 400 H 332 H Hemoglobin A1c Calcium 7.7 L Phosphorus Magnesium Total Bilirubin 0.8 AST 26 ALT 21 Alkaline Phosphatase 83 Total Protein 6.0 L Albumin 3.8 Beta-Hydroxybutyrate/Acetoacetate TSH (Reflex) Urine Color Urine Appearance Urine pH Ur Specific [place] Urine Protein Urine Glucose (UA) Urine Ketones Ur Blood (Man) Urine Nitrate Urine Bilirubin Urine Urobilinogen Leukocyte Esterase Rfl 08/07/24 08/07/24 08/07/24 03:19 04:47 08:09 WBC RBC Hgb Hct MCV MCH MCHC RDW Plt Count MPV Immature Gran % (Auto) Neut % (Auto) Lymph % (Auto) [place] % (Auto) Eos % (Auto) Baso % (Auto) Lymph # (Auto) [place] # (Auto) Eos # (Auto) Baso # (Auto) Abs Immat Gran (auto) Absolute Neuts (auto) Absolute Nucleated RBC Nucleated RBC % O2 Liters/Min Sodium 137 Potassium 2.9 L Chloride 103 Carbon Dioxide 25 Anion Gap 9 BUN 5 L Creatinine 0.38 L Estim Creat Clear Calc 184 Estimated GFR > 60 Glucose 106 POC Capillary Glucose 117 H 113 H Hemoglobin A1c Calcium 8.2 L Phosphorus Magnesium Total Bilirubin AST ALT Alkaline Phosphatase Total Protein Albumin Beta-Hydroxybutyrate/Acetoacetate TSH (Reflex) Urine Color Urine Appearance Urine pH Ur Specific [place] Urine Protein Urine Glucose (UA) Urine Ketones Ur Blood (Man) Urine Nitrate Urine Bilirubin Urine Urobilinogen Leukocyte Esterase Rfl 08/07/24 12:04 WBC RBC Hgb Hct MCV MCH MCHC RDW Plt Count MPV Immature Gran % (Auto) Neut % (Auto) Lymph % (Auto) [place] % (Auto) Eos % (Auto) Baso % (Auto) Lymph # (Auto) [place] # (Auto) Eos # (Auto) Baso # (Auto) Abs Immat Gran (auto) Absolute Neuts (auto) Absolute Nucleated RBC Nucleated RBC % O2 Liters/Min Sodium Potassium Chloride Carbon Dioxide Anion Gap BUN Creatinine Estim Creat Clear Calc Estimated GFR Glucose POC Capillary Glucose 207 H Hemoglobin A1c Calcium Phosphorus Magnesium Total Bilirubin AST ALT Alkaline Phosphatase Total Protein Albumin Beta-Hydroxybutyrate/Acetoacetate TSH (Reflex) Urine Color Urine Appearance Urine pH Ur Specific [place] Urine Protein Urine Glucose (UA) Urine Ketones Ur Blood (Man) Urine Nitrate Urine Bilirubin Urine Urobilinogen Leukocyte Esterase Rfl
[2024-08-07 17:25] LABS: Glucose Point of Care 181 mg/dl (65-105)
--- NOTE | 2024-08-07 18:49 | PC.NURSE ---
Extensive education provided regarding diabetes. Patient and family was given a diabetes booklet, an assortment of print outs that detailed meal management, checking blood sugars, hypo and hyperglycemia, etc. Educational materials were discussed and all questions answered to the best of this nurses ability. marine plumber has been notified and will continue education this week. Patient was able to return demonstration checking blood sugar with the accu check machine and one touch glucose monitor. Pt was also able to successfully give insulin injection at dinner time on his first try. Pt and family educated on potential use of a continuous glucose monitor in the future. Pt states he is not wanting a pump at this time. Lots of reiteration on the fact that the patient can still eat, but will just need to dose for his meals. Patient and family all are aware of when to check blood sugars as well as dosing for meals. Pt was very nervous at the beginning of this nurses shift and seems more comfortable at the end of the day.
[2024-08-07 20:33] VITALS: BP 101/68; PULSE 90; RESP 18; TEMP 36.7; O2SAT 100
[2024-08-07 20:33] LABS: Glucose Point of Care 296 mg/dl (65-105)
[2024-08-07] MEDS: SERTRALINE HCL 50 MG TABLET 150 MG PO (20:34)
[2024-08-07] MEDS: INSULIN GLARGINE (*BKC) 100 UNITS/ML 8 UNITS SUB-Q (20:38)
[2024-08-08 02:26] LABS: Glucose Point of Care 191 mg/dl (65-105)
[2024-08-08] MEDS: SODIUM CHLORIDE 0.9% IV 1,000 ML 125 ML IV CONT (04:34)
[2024-08-08 05:09] VITALS: BP 104/59; PULSE 86; RESP 16; TEMP 36.4; O2SAT 100
[2024-08-08 06:38] LABS: Hematocrit 34.8 % (42.0-52.0); Hemoglobin 12.7 g/dL (14.0-18.0); Mean Corpuscular HGB Conc 36.5 g/dl (32-36); Mean Corpuscular Hemoglobin 32.4 pg (26-34); Mean Corpuscular Volume 88.8 fl (80-100); Mean Platelet Volume 10.4 fl (7.4-10.4); Platelet Count Result 178 k/mm3 (150-375); Red Blood Count 3.92 M/mm3 (4.6-6.20); Red Cell Distribution Width 11.9 % (11.5-14.5); White Blood Count 4.8 K/mm3 (4.5-10.0)
[2024-08-08 06:51] LABS: Magnesium 1.9 mg/dL (1.6-2.3)
[2024-08-08 08:23] LABS: Glucose Point of Care 219 mg/dl (65-105)
[2024-08-08] MEDS: INSULIN ASPART (*BKC) 100 UNITS/ML SUB-Q ×7 (08:37→20:59)
[2024-08-08 10:10] LABS: Anion Gap 11 mmol/L (4-12); Blood Urea Nitrogen 4 mg/dL (9-20); Carbon Dioxide 21 mmol/L (22-30); Chloride 104 mmol/L (98-107); Estimated CRCL calculation 184 ml/min; Estimated Glomerular Filt Rate > 60; Glucose 204 mg/dL (65-110); Sodium 136 mmol/L (137-145)
[2024-08-08 12:15] LABS: Glucose Point of Care 261 mg/dl (65-105)
[2024-08-08] MEDS: POTASSIUM CHLORIDE 20 MEQ ER TABLET 40 MEQ PO (12:32)
[2024-08-08 13:10] VITALS: BMI 17.1
--- NOTE | 2024-08-08 13:24 | PM.IMPN ---
Progress Note: A&P Assessment and Plan (1) New onset type 1 diabetes mellitus, uncontrolled: Status: Acute (2) Protein-calorie malnutrition, moderate: Code(s): E44.0 - Moderate protein-calorie malnutrition Status: Acute (3) Dehydration: Code(s): E86.0 - Dehydration Status: Acute (4) Pseudohyponatremia: Code(s): R79.89 - Other specified abnormal findings of blood chemistry Status: Acute Plan Patient has new onset type 1 diabetes mellitus with borderline DKA versus combination of DKA and or starvation ketosis. Patient has already had significant improvement in glucoses with isotonic fluid resuscitation approximately 50 mL/kilos. Repeat electrolyte panel did demonstrate significant improvement in anion gap with slightly lower serum bicarb. But patient had significant improvement in pseudo hyponatremia with improvement in glucose is down to 385. VBG results are still pending but patient clinically appears stable and improved with fluids. Will admit patient to medical floor. I requested the patient receive dose of Lantus 10 units subQ x1 this would be 0.2 units per kg dose given the patient is insulin naive state. Will also place patient on low-dose sliding scale insulin and mealtime bolus insulin as well as Accu-Cheks a.c. HS and hypoglycemia protocol. Will consult early childhood special educator is the patient family will need significant Education given this new diagnosis. Patient has pseudo hyponatremia due to degree of hyperglycemia with sodium has improved proportionately with correction of glucose. Will repeat electrolyte panel in a.m.. The patient is adamant that he only wants to use glucometer with intermittent Accu-Cheks and basal bolus insulin with long-acting insulin and short-acting insulin as needed with meals. His mother is adamant that he received an insulin pump. I did discuss in great detail with both patient and his mother at bedside that the decision on insulin pump would not be made during an inpatient hospital stay. That he would need to follow-up with Endocrinology as outpatient to have further discussion of this. The patient has had at least and 18 kg weight loss since last year. It sounds as if he has had more acute weight loss recently but the exact amount is unknown. Patient does have extremely thin body habitus with BMI of 17 with evidence of muscle wasting. He at least has moderate if not severe protein calorie malnutrition. This is at least in part due to untreated/previously unknown diagnosis of diabetes causing some muscle wasting and subcutaneous fat loss. Patient would benefit from outpatient dietitian consultation Education regarding appropriate nutrition/dietary choices. The patient does report persistent depressive symptoms but denies any acute worsening of depression symptoms. He already has close follow-up with his psychiatrist as outpatient and recently had medication changes. Will continue home sertraline. Will hold the patient's Strattera while acutely hospitalized. Patient's mother request psychiatric consultation while inpatient. I explained to her that that was not a feasible option as our facility does not have a inpatient psychiatric service. In his patient is not actively acutely decompensated from his depression he can follow-up with his outpatient provider. The patient's case/plan of care was discussed with the patient his mother at bedside with the patient's permission. All questions were answered and concerns addressed. Patient has been admitted as observation status. Patient with new onset diabetes etiology uncertain type 1 or type 2, suspect most likely type 1 and early stage to further evaluate C-peptide is ordered, patient started on insulin regimen and we will consult school vocational educator for further recommendation, patient's family is quite interested in starting the patient on insulin pump discussed with patient and his family, patient will follow-up with his women's lacrosse coach and further recommendation to follow, patient was found to have hyponatremia most likely secondary to hyperglycemia which is now trending up his as blood sugars are improving. Patient is clinically stable will continue to monitor and further recommendation to follow. today patient stats feels better his blood sugars are improving and he has no complains to polyuria, polydipsia, patient stats he feels comfortable giving himself insulin injection, C-peptide levels are pending and family is working getting consultation with an women's lacrosse coach and patient will be seen by a early childhood special educator and further recommendation to follow. Subjective Date/time seen: 08/08/24 13:24 Interval history: High blood sugar H&P-Narrative: 23-year-old male with past medical history of depression and autism spectrum disorder with sensory issues and food aversion issues presented to the ER from home after outpatient labs demonstrated high glucoses. The patient's psychiatrist at ordered lab work prior to changing the patient's psychiatric medications. Outpatient labs demonstrated glucose of 694. The patient was directed to come to the ER for evaluation. The patient and his mother reports that his weight was as high as 155 lb last year. His waist circumference used to be around 30. His waist circumference is now around 23 in. His mother reports that patient is had marked weight loss over the last 3-4 months. Patient is mother disagree with some of the timing of symptoms. But the patient confirms that he has been having polydipsia, polyphagia and polyuria at least for the last 3 months. He has been resistant on coming in for evaluation. Denies any dysuria, hematuria, nausea, vomiting, abdominal pain, fevers or chills. The patient reported that during his last evaluation is psychiatrist office his Strattera was increased from 18 mg to 25. His sertraline was increased from 100 mg up to 150 mg. His mother reports that the patient is still ?down and low? in mood. Patient denies any active suicidal or homicidal ideation. His stay electrolyte panel in the ER demonstrated pseudo hyponatremia sodium of 128 mildly low serum bicarb at 20 anion gap of 18 creatinine 0.3 and glucose of 619. The patient received a total of 3 L of IV fluids (approximately 50 mL/kilos) and repeat glucose was down to 400. On arrival to the medical floor patient's glucose was down to 332. Patient with new onset diabetes etiology uncertain type 1 or type 2, suspect most likely type 1 and early stage to further evaluate C-peptide is ordered, patient started on insulin regimen and we will consult school vocational educator for further recommendation, patient's family is quite interested in starting the patient on insulin pump discussed with patient and his family, patient will follow-up with his women's lacrosse coach and further recommendation to follow, patient was found to have hyponatremia most likely secondary to hyperglycemia which is now trending up his as blood sugars are improving. Patient is clinically stable will continue to monitor and further recommendation to follow. today patient stats feels better his blood sugars are improving and he has no complains to polyuria, polydipsia, patient stats he feels comfortable giving himself insulin injection, C-peptide levels are pending and family is working getting consultation with an women's lacrosse coach and patient will be seen by a early childhood special educator and further recommendation to follow. Review of Systems Review of Systems: 12 systems were reviewed with pertinent positives and negatives per HPI. Except as documented in the HPI, all other systems were reviewed and are negative. Exam Narrative: Patient is comfortable, NAD appears malnourished HEENT: eyes are clear and none icteric LUNGS:CTA HEART: RR S1S2 ABD: BS+, Soft and nontender Lower extremities: no edema SKIN: nonjaundiced Neuro: grossly intact. Objective Data Vital Signs Vital Signs: Vital Signs - 24 hr 08/07/24 14:00 08/07/24 20:00 08/07/24 20:33 Temperature 36.7 C Pulse Rate 93 90 Respiratory Rate 20 18 Blood Pressure 113/71 101/68 Pulse Oximetry 98 100 Oxygen Delivery Room Air 08/08/24 05:09 08/08/24 07:49 Temperature 36.4 C Pulse Rate 86 Respiratory Rate 16 Blood Pressure 104/59 L Pulse Oximetry 100 Oxygen Delivery Room Air Intake/Output Intake/Output: Intake & Output 08/05/24 08/06/24 08/07/24 08/08/24 23:59 23:59 23:59 23:59 Intake Total 1700 3687.5 1120 Balance 1700 3687.5 1120 Meds/Results Medications: Active Medications Generic Name Dose Route Start Last Admin Trade Name Freq PRN Reason Stop Dose Admin Acetaminophen 650 mg 08/07/24 11:50 08/07/24 12:31 Acetaminophen 325 Mg Tablet PO 650 mg Q6H PRN Administration Mild Pain (1-3) or Fever Dextrose 12.5 gm 08/06/24 21:47 Dextrose 50% 25 Gm/50 Ml Syringe IV PUSH PRN PRN Hypoglycemia Protocol Glucagon 1 mg 08/06/24 21:47 Glucagon For Inj 1 Mg Vial IM PRN PRN Hypoglycemia Protocol Glucose 15 gm 08/06/24 21:47 Glucose Oral Gel 15 Gm Of Glucse In 37.5 Gm Tube PO PRN PRN Hypoglycemia Protocol Dextrose 1,000 mls @ 100 mls/hr 08/06/24 21:47 Dextrose 5% 1,000 Ml IVPB PRN PRN Hypoglycemia Protocol Sodium Chloride 1,000 mls @ 125 mls/hr 08/06/24 22:00 08/08/24 04:34 Normal Saline Iv IV CONT 125 mls/hr .Q8H GABRIELLE Administration Insulin Aspart 2 units 08/07/24 08:00 08/08/24 12:32 Insulin Aspart (*Bkc) 100 Units/Ml SUB-Q 2 units TIDWM GABRIELLE Administration Insulin Aspart 2 - 5 units 08/07/24 08:00 08/08/24 12:33 Insulin Aspart (*Bkc) 100 Units/Ml SUB-Q 3 units TIDWM [facility] Administration Protocol Insulin Aspart 1 - 2 units 08/07/24 21:00 08/07/24 20:36 Insulin Aspart (*Bkc) 100 Units/Ml SUB-Q 1 units HS [facility] Administration Protocol Insulin Glargine 8 units 08/07/24 21:00 08/07/24 20:38 Insulin Glargine (*Bkc) 100 Units/Ml 0.15 units/kg (8 units) 8 units SUB-Q Administration [facility] Sertraline HCl 150 mg 08/07/24 21:00 08/07/24 20:34 Sertraline Hcl 50 Mg Tablet PO 150 mg HS [facility] Administration Labs Labs: Laboratory Results - last 24 hr 08/07/24 08/07/24 08/08/24 17:08 20:29 02:22 WBC RBC Hgb Hct MCV MCH MCHC RDW Plt Count MPV Sodium Potassium Chloride Carbon Dioxide Anion Gap BUN Creatinine Estim Creat Clear Calc Estimated GFR Glucose POC Capillary Glucose 181 H 296 H 191 H Calcium Magnesium 08/08/24 08/08/24 08/08/24 05:59 08:19 12:06 WBC 4.8 RBC 3.92 L Hgb 12.7 L Hct 34.8 L MCV 88.8 MCH 32.4 MCHC 36.5 H RDW 11.9 Plt Count 178 MPV 10.4 Sodium 136 L Potassium 3.0 L Chloride 104 Carbon Dioxide 21 L Anion Gap 11 BUN 4 L Creatinine 0.38 L Estim Creat Clear Calc 184 Estimated GFR > 60 Glucose 204 H POC Capillary Glucose 219 H 261 H Calcium 8.0 L Magnesium 1.9
--- NOTE | 2024-08-08 13:46 | P.CDI_ITS ---
CDI Query Clarification Request BMI: 17.1 Nutritional Diagnostic Statement: Please refer to the comprehensive nutrition assessment for further information. If you agree with diagnosis of Moderate protein calorie malnutrition as related to increased energy needs in setting of chronic disease (new dx DM) as evidenced by significant weight loss of 19 ibs (14%) in 6 months, moderate subcutaneous fat loss(orbital fat pads) and moderate muscle wasting (temporalis, clavicle). Please specify severity if known: * Mild * Moderate * Severe * Other/Unknown
[2024-08-08 13:52] VITALS: BP 101/61; PULSE 84; RESP 18; TEMP 36.7; O2SAT 100
[2024-08-08 14:25] VITALS: BMI 17.1
[2024-08-08 17:05] LABS: Glucose Point of Care 228 mg/dl (65-105)
[2024-08-08] MEDS: INSULIN GLARGINE (*BKC) 100 UNITS/ML 8 UNITS SUB-Q (20:56)
[2024-08-08] MEDS: SERTRALINE HCL 50 MG TABLET 150 MG PO (20:57)
[2024-08-08 21:04] VITALS: BP 112/78; PULSE 83; RESP 16; TEMP 36.8; O2SAT 100
[2024-08-08 21:09] LABS: Glucose Point of Care 275 mg/dl (65-105)
[2024-08-09 06:00] VITALS: BP 101/67; PULSE 93; RESP 16; TEMP 36.7; O2SAT 100
[2024-08-09 06:16] LABS: Hematocrit 37.3 % (42.0-52.0); Hemoglobin 13.4 g/dL (14.0-18.0); Mean Corpuscular HGB Conc 35.9 g/dl (32-36); Mean Platelet Volume 10.8 fl (7.4-10.4); Platelet Count Result 187 k/mm3 (150-375); Red Blood Count 4.19 M/mm3 (4.6-6.20); White Blood Count 4.8 K/mm3 (4.5-10.0)
[2024-08-09 06:36] LABS: Anion Gap 9 mmol/L (4-12); Blood Urea Nitrogen 6 mg/dL (9-20); Calcium 8.6 mg/dL (8.4-10.2); Carbon Dioxide 28 mmol/L (22-30); Chloride 101 mmol/L (98-107); Estimated CRCL calculation 166 ml/min; Estimated Glomerular Filt Rate > 60; Glucose 133 mg/dL (65-110); Potassium 3.3 mmol/L (3.4-5.0); Sodium 138 mmol/L (137-145)
[2024-08-09 07:58] LABS: C-Peptide 0.12 ng/mL (0.80-3.85)
[2024-08-09 08:23] LABS: Glucose Point of Care 121 mg/dl (65-105)
[2024-08-09] MEDS: INSULIN ASPART (*BKC) 100 UNITS/ML SUB-Q ×3 (08:24→12:28)
[2024-08-09 12:06] LABS: Glucose Point of Care 302 mg/dl (65-105)
--- NOTE | 2024-08-09 12:20 | PM.DS ---
DS: Admitting Diagnosis Discharge Date 08/09/24 Admitting Diagnosis High blood sugar DS: Discharge Diagnosis Discharge Diagnosis (1) New onset type 1 diabetes mellitus, uncontrolled: Status: Acute DS: Summary Hospital Course Hospital Course: 23-year-old male with past medical history of depression and autism spectrum disorder with sensory issues and food aversion issues presented to the ER from home after outpatient labs demonstrated high glucoses. The patient's psychiatrist at ordered lab work prior to changing the patient's psychiatric medications. Outpatient labs demonstrated glucose of 694. The patient was directed to come to the ER for evaluation. The patient and his mother reports that his weight was as high as 155 lb last year. His waist circumference used to be around 30. His waist circumference is now around 23 in. His mother reports that patient is had marked weight loss over the last 3-4 months. Patient is mother disagree with some of the timing of symptoms. But the patient confirms that he has been having polydipsia, polyphagia and polyuria at least for the last 3 months. He has been resistant on coming in for evaluation. Denies any dysuria, hematuria, nausea, vomiting, abdominal pain, fevers or chills. The patient reported that during his last evaluation is psychiatrist office his Strattera was increased from 18 mg to 25. His sertraline was increased from 100 mg up to 150 mg. His mother reports that the patient is still ?down and low? in mood. Patient denies any active suicidal or homicidal ideation. His stay electrolyte panel in the ER demonstrated pseudo hyponatremia sodium of 128 mildly low serum bicarb at 20 anion gap of 18 creatinine 0.3 and glucose of 619. The patient received a total of 3 L of IV fluids (approximately 50 mL/kilos) and repeat glucose was down to 400. On arrival to the medical floor patient's glucose was down to 332. Discharged on Lantus 10 units and premeal Novlog 5 units tid with meals and low dose SSI with accucheks Patient already scheduled an appointment with PCP on Thursday for possible Insulin pump. F/u with PCP as scheduled Time Spent with Patient Time attestation: Total time spent providing and/or coordinating discharge services: DS: Data Data Completed and Pending Labs on day of discharge: Labs from last 24 hours 08/09/24 08/09/24 08/09/24 11:54 08:12 05:28 WBC 4.8 RBC 4.19 L Hgb 13.4 L Hct 37.3 L MCV 89.0 MCH 32.0 MCHC 35.9 RDW 12.0 Plt Count 187 MPV 10.8 H VBG pH VBG pCO2 VBG pO2 VBG HCO3 O2 Delivery Device FiO2 Sodium 138 Potassium 3.3 L Chloride 101 Carbon Dioxide 28 Anion Gap 9 BUN 6 L Creatinine 0.43 L Estim Creat Clear Calc 166 Estimated GFR > 60 Glucose 133 H POC Capillary Glucose 302 H 121 H C-Peptide Calcium 8.6 Magnesium 2.0 08/08/24 08/08/24 08/07/24 20:58 17:02 04:46 WBC RBC Hgb Hct MCV MCH MCHC RDW Plt Count MPV VBG pH VBG pCO2 VBG pO2 VBG HCO3 O2 Delivery Device FiO2 Sodium Potassium Chloride Carbon Dioxide Anion Gap BUN Creatinine Estim Creat Clear Calc Estimated GFR Glucose POC Capillary Glucose 275 H 228 H C-Peptide 0.12 L Calcium Magnesium 08/06/24 19:40 WBC RBC Hgb Hct MCV MCH MCHC RDW Plt Count MPV VBG pH 7.345 VBG pCO2 32.7 L VBG pO2 < 27.0 L VBG HCO3 17.4 L O2 Delivery Device Room air FiO2 21 Sodium Potassium Chloride Carbon Dioxide Anion Gap BUN Creatinine Estim Creat Clear Calc Estimated GFR Glucose POC Capillary Glucose C-Peptide Calcium Magnesium Discharge Plan Discharge Attending physician on discharge: Ayleen Manriquez Discharging Clinician: Ayleen Manriquez Anticipated Discharge Date/Time: 08/09/24 11:59 Patient Disposition: Home, Self-Care Activity: as tolerated Diet: diabetic Discharge Instructions: Per Care Coordination. Patient would like to follow up with DR. Pam Horn, insurance risk surveyor [phone]. He will need to contact them to schedule first visit. Patient Instructions: Antibiotic Form, Diabetic Ketoacidosis (DC), Foot Care for People with Diabetes (DC), Type 1 Diabetes in Adults: New Diagnosis (DC), Hypoglycemia in a Person with Diabetes (DC), Meal Planning with the Plate Method (DC), Meal Planning with Diabetes Exchanges (DC), Managing Diabetes During Sick Days (DC), Diabetic Hyperglycemia (DC), Diabetes and Your Skin (DC), Hemoglobin A1c (GEN), What to Do if Your Blood Sugar is Low (DC), Diabetes and Nutrition (DC), Diabetes Type 1: Management (DC) Patient Language: Welsh Stand Alone Forms: General Discharge Information Follow-up/Referrals: Cortney Galan MD [Primary Care Provider] - (F/u with PCP in 3-5 days ) Discharge Medications: New insulin aspart U-100 [Novolog FlexPen U-100 Insulin] 100 unit/mL (3 mL) insulin pen 5 unit subcut TIDWMEAL Qty: 15 0RF insulin glargine [Lantus Solostar U-100 Insulin] 100 unit/mL (3 mL) insulin pen 10 unit subcut QPM Qty: 3 0RF Continued atomoxetine 25 mg capsule 25 mg PO HS sertraline 100 mg tablet 150 mg PO HS Other Ambulatory Orders: Diabetes Education Referral (Routine) Timeframe: 1 Day Location: Determined by Patient Ordered By: Ayleen Manriquez Date of admission: 08/06/24 21:56 Primary Care Provider: Cortney Galan Admitting Provider: Ayanna Serna Attending physician on admission: Ayanna Serna Condition: Stable
[2024-08-09 13:29] VITALS: BP 104/73; PULSE 84; RESP 18; TEMP 36.4; O2SAT 100
--- NOTE | 2024-08-09 16:55 | PC.NURSE ---
Patient d/C with one touch meter, orders for test strips and lancets changed to be compatible with meter
--- NOTE | 2024-08-10 16:25 | PCCDE ---
Post discharge diabetes education follow up: called pt today. He denies any questions or problems with insulin or SMBG. He asked about still being hungry after eating meals with 60g carb. Reports he was told not to have more than 60 grams carb per meal. Pt's UBW is 140# and current weight is 117#. Instructed pt to use a carb range of 45-75 grams per meal. He is scheduled to see PCP on 08/15; encouraged to seek referral for MNT and DSMT so can monitor weight gain and BG. Pt sts he may have his mother call so she can confirm that it is okay for him to eat 75g carb per meal. Encouraged pt to call DM Specialist with any diabetes related questions.
--- OUTSIDE RECORDS SUMMARY | 2024-08-11 09:26 | XMS_ITS | Clinical Summary ---
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 ADHD (attention deficit hyperactivity disorder) 09/21/2014 Asperger syndrome 09/21/2014 Family History Medical History Relation Name Comments Healthy Brother Healthy Father Healthy Mother Relation Name Status Comments Brother Father Mother Social History Tobacco Use Types Packs/Day Years Used Date Smoking Tobacco: Never Smokeless Tobacco: Never Alcohol Use Standard Drinks/Week Comments No 0 (1 standard drink = 0.6 oz pur e alcohol) Sex and Gender Information Value Date Recorded Sex Assigned at Not on file Legal Sex Male 2:10 PM DIRECTOR OF PHYSICAL EDUCATION Gender Identity Not on file Sexual Orientation Not on file Last Filed Vital Signs Vital Sign Reading Time Taken Comments Blood Pressure 102/62 09/21/2014 11:34 AM DIRECTOR OF PHYSICAL EDUCATION Pulse - - Temperature - - Respiratory Rate - - Oxygen Saturation - - Inhaled Oxygen Concentration - - Weight 44 kg (97 lb) 09/21/2014 11:34 AM DIRECTOR OF PHYSICAL EDUCATION Height 145 cm (4' 9.09 ) 09/21/2014 11:34 AM DIRECTOR OF PHYSICAL EDUCATION Body Mass Index 20.93 09/21/2014 11:34 AM DIRECTOR OF PHYSICAL EDUCATION Plan of Treatment Health Maintenance Due Date Last Done Comments HPV VACCINES (1 - Male 3-dose series) 2017 DTAP/TDAP/TD VACCINES (1 - Tdap) 2021 HEPATITIS B VACCINES (1 of 3 - 19+ 3-dose series) 08/21 INFLUENZA VACCINE (#1) 2024 Insurance * Guarantor: L[employer] Sol[employer] Account Type Relation to Patient Date of Phone Billing Address Personal/Family Self 2000 [phone] [employer] (Work) [address] [place], [place] [id number] [employer] Care Teams Data Virtualization Consultant Relationship Specialty Start Date End Date Yehuda Pendleton MD [address] [place] [address] PCP - General Family Practice 09/11/14
== END 2024-08-09 14:03 | disposition home or self-care (01) ==
LOC: ANHED 21:56 → ANH2MED 08-07 10:39
PROVIDERS: Family Medicine; Preventive Medicine Aerospace Medicine; Admitting Provider Internal Medicine; Emergency Provider Registered Nurse; PCP Family Medicine; Visit Provider Internal Medicine
DX: E10.9 Type 1 diabetes mellitus without complications (principal); E44.0 Moderate protein-calorie malnutrition; Z68.1 Body mass index [BMI] 19.9 or less, adult; E86.0 Dehydration; R79.89 Other specified abnormal findings of blood chemistry; F84.0 Autistic disorder; F90.9 Attention-deficit hyperactivity disorder, unspecified type; F41.9 Anxiety disorder, unspecified; F32.A Depression, unspecified
CPT/HCPCS: 36415; 80048; 80053; 81003; 82010; 82803; 82948; 83036; 83735; 84100; 84443; 84681; 85025; 85027; 96360; 96361; 96365; 96366; 96375; 99285; A9270; G0378; J1815; J7030